=== PATIENT | male | born 1955 | race Caucasian/White ===

== ENCOUNTER → 2017-08-27 | Outpatient (CLI) | payer OTHER | END | disposition home or self-care (01) | LOC: PLD 07:35 → LAB SHORT 07:35 | DX: D04.5 Carcinoma in situ of skin of trunk (principal) | CPT/HCPCS: 88305 ==

== ENCOUNTER → 2017-11-05 | Outpatient (CLI) | payer OTHER ==
[2017-11-05 19:04] LABS: Anion Gap 12 mmol/L (6-16); Blood Urea Nitrogen 21 mg/dL (8-24); Bun/Creatinine Ratio 24.5 (12.0-20.0); CO2, Blood 25 mmol/L (21-32); Calcium, Blood 9.4 mg/dL (8.5-10.1); Chloride, Blood 98 mmol/L (98-108); Creatinine, Blood 0.86 mg/dL (0.60-1.20); Glomerular Filtration Rate >60 (60-); Glucose, Blood 300 mg/dL (70-99); Potassium, Blood 3.6 mmol/L (3.5-5.5); Sodium, Blood 135 mmol/L (136-145); Uric Acid, Blood 8.4 mg/dL (3.5-7.2)
== END ==
LOC: LAB SHORT 16:59 → LAB 16:59
PROVIDERS: Hospitalist
DX: M10.061 Idiopathic gout, right knee (principal); M10.062 Idiopathic gout, left knee
CPT/HCPCS: 80048; 84550

== ENCOUNTER → 2019-03-31 | Outpatient (CLI) | payer OTHER | END | disposition home or self-care (01) | LOC: PLD 08:32 → LAB SHORT 08:32 | DX: D04.5 Carcinoma in situ of skin of trunk (principal) | CPT/HCPCS: 88305 ==

== ENCOUNTER → 2019-04-16 | Outpatient (CLI) | payer OTHER ==
[2019-04-16 17:58] LABS: BASOPHILS ABSOLUTE AUTO 0.04 K/mm3 (0.00-0.23); BASOPHILS PERCENT AUTO 1 % (0-2); EOSINOPHILS ABSOLUTE AUTO 0.15 K/mm3 (0.00-0.68); EOSINOPHILS PERCENT AUTO 2 % (0-6); Hematocrit 39.5 % (37.0-53.0); Hemoglobin 13.7 g/dL (13.5-17.5); IMMATURE GRAN ABSOLUTE AUTO 0.05 K/mm3 (0.00-0.10); IMMATURE GRAN PERCENT AUTO 1 % (0-1); LYMPHOCYTES ABSOLUTE AUTO 1.85 K/mm3 (0.84-5.20); LYMPHOCYTES PERCENT AUTO 26 % (21-46); MONOCYTES ABSOLUTE AUTO 0.41 K/mm3 (0.16-1.47); MONOCYTES PERCENT AUTO 6 % (4-13); Mean Corpuscular HGB 29.8 pg (26.0-34.0); Mean Corpuscular HGB Conc 34.7 g/dL (31.5-36.5); Mean Corpuscular Volume 86 fL (80-100); Mean Platelet Volume 12.4 fL (9.1-12.4); NEUTROPHILS ABSOLUTE AUTO 4.54 K/mm3 (1.96-9.15); NEUTROPHILS PERCENT AUTO 65 % (41-73); Platelet Count 185 K/mm3 (150-400); RDW Coefficient Variation 14.6 % (11.7-14.2); RDW Standard Deviation 45.5 fL (35.1-46.3); White Blood Cell Count 7.04 K/mm3 (4.00-11.30)
[2019-04-16 18:13] LABS: Alanine Aminotransfer (ALT/SGP 32 U/L (12-78); Albumin, Blood 3.9 g/dL (3.4-5.0); Albumin/Globulin Ratio 1.3 (0.8-1.8); Alk Phos 74 U/L (50-136); Anion Gap 6 mmol/L (6-16); Aspartate Aminotrans (AST/SGOT 15 U/L (12-37); Bilirubin, Total 0.6 mg/dL (0.1-1.0); Blood Urea Nitrogen 14 mg/dL (8-24); Bun/Creatinine Ratio 18.7 (12.0-20.0); CHOL/HDL RATIO 5.9; CO2, Blood 27 mmol/L (21-32); Calcium, Blood 9.1 mg/dL (8.5-10.1); Chloride, Blood 107 mmol/L (98-108); Cholesterol 172 mg/dL (50-200); Creatinine, Blood 0.75 mg/dL (0.60-1.20); Glomerular Filtration Rate >60 (60-); Glucose, Blood 172 mg/dL (70-99); HDL Cholesterol 29 mg/dL (>39); LDL/HDL RATIO Unable to Calculate; Low Density Lipoprotein Chol Unable to Calculate mg/dL (0-110); Potassium, Blood 3.6 mmol/L (3.5-5.5); Sodium, Blood 140 mmol/L (136-145); Total Protein, Blood 6.9 g/dL (6.4-8.2); Triglycerides 606 mg/dL (30-160); Very Low Density Lipoprot Chol Unable to Calculate mg/dL (6-32)
== END | disposition home or self-care (01) ==
LOC: LAB SHORT 13:49 → LAB 13:49
PROVIDERS: Hospitalist
DX: E11.42 Type 2 diabetes mellitus with diabetic polyneuropathy (principal); E78.5 Hyperlipidemia, unspecified; I10 Essential (primary) hypertension
CPT/HCPCS: 80053; 80061; 82043; 83036; 85025

== ENCOUNTER → 2020-05-25 | Outpatient (CLI) | payer OTHER | END | disposition home or self-care (01) | LOC: LAB SHORT 07:47 → PLD 07:47 | DX: L57.0 Actinic keratosis (principal) | CPT/HCPCS: 88305 ==

== ENCOUNTER → 2021-05-08 | Outpatient (CLI) | payer OTHER ==
[2021-05-08 19:37] LABS: CHOL/HDL RATIO 6.1; Cholesterol 170 mg/dL (50-200); HDL Cholesterol 28 mg/dL (>39); Low Density Lipoprotein Chol 84 mg/dL (0-110); Triglycerides 290 mg/dL (30-160); Very Low Density Lipoprot Chol 58 mg/dL (6-32)
== END | disposition home or self-care (01) ==
LOC: LAB SHORT 13:40
PROVIDERS: Hospitalist
DX: E11.42 Type 2 diabetes mellitus with diabetic polyneuropathy (principal); E78.5 Hyperlipidemia, unspecified
CPT/HCPCS: 80061; 82043

== ENCOUNTER → 2022-01-11 | Outpatient (CLI) | payer OTHER | END | disposition home or self-care (01) | LOC: LAB SHORT 15:15 → LAB 15:15 | DX: R31.21 Asymptomatic microscopic hematuria (principal) | CPT/HCPCS: 87086 ==

== ENCOUNTER → 2022-02-20 | Outpatient (CLI) | payer OTHER | END | disposition home or self-care (01) | LOC: LAB SHORT 15:30 → LAB 15:30 | PROVIDERS: Hospitalist | DX: Z12.5 Encounter for screening for malignant neoplasm of prostate (principal) | CPT/HCPCS: G0103 ==

== ENCOUNTER → 2022-04-09 | Outpatient (CLI) | payer OTHER ==
[2022-04-09 19:09] LABS: CHOL/HDL RATIO 5.9; Cholesterol 171 mg/dL (50-200); HDL Cholesterol 29 mg/dL (>39); LDL/HDL RATIO 2.9; Low Density Lipoprotein Chol 84 mg/dL (0-110); Triglycerides 290 mg/dL (30-160); Very Low Density Lipoprot Chol 58 mg/dL (6-32)
== END | disposition home or self-care (01) ==
LOC: LAB SHORT 17:18 → LAB 17:18
PROVIDERS: Hospitalist
DX: E11.69 Type 2 diabetes mellitus with other specified complication (principal); E78.5 Hyperlipidemia, unspecified
CPT/HCPCS: 80061; 83036

== ENCOUNTER → 2022-06-27 | Outpatient (CLI) | payer OTHER | END | disposition home or self-care (01) | LOC: PLD 12:10 → LAB SHORT 12:10 | DX: C44.519 Basal cell carcinoma of skin of other part of trunk (principal); D04.5 Carcinoma in situ of skin of trunk; D04.61 Carcinoma in situ of skin of right upper limb, including shoulder | CPT/HCPCS: 88305 ==

== ENCOUNTER 2022-10-04 06:28 | Day surgery (SDC) | payer OTHER ==
[~2022-10-04] VITALS: Ht 177.8 cm; Wt 91.0 kg
[~2022-10-04 06:28] MED LIST: ALLO300 PO; ATOR10 PO; GEMF600 PO; GLIP5 PO; HYDR10 PO; INSULIN GL100 UNIT/3 SC; LISI20 PO; METF500 PO; SPIR50 PO
--- NOTE | 2022-10-04 19:15 | NUR ---
PCU ADMIT / END OF SHIFT PT A&O X4. VSS. SPO2 > 92% ON RA. MONITOR SHOWING PACED RHYTHM, HR 60s-80s. PT INDEPENDENT IN RM. LCW PACER INSERTION SITE WNL. PT REPORTING "SOME DISCOMFORT" BUT DENYING NEED FOR PRN PAIN MEDICATION. PT STATES "I'LL THINK ABOUT IT, MAYBE LATER." L ARM IN SLING & ICE PACK IN PLACE. REPORT GIVEN TO TRAUMA DOCTOR RN ASSUMING CARE OF PT.
--- NOTE | 2022-10-05 05:15 | NUR ---
SHIFT SUMMARY: Patient refused pain meds despite reporting mild pain at pacemaker incision site. Vitals stable but hypertensive at times. Given scheduled antihypertensives before bed which did lower BP somewhat. Paced rythm in the 60s. Patient reports that cannot get comfortable in the bed and has slept poorly, but declines interventions. Ambulating in room independently with arm in sling.
[2022-10-05] MEDS ORDERED: HYDCHL25 PO (08:37)
[2022-10-05] MEDS ORDERED: AMLO10 PO (14:54)
[2022-10-05] MEDS ORDERED: Carvedilol12.5 MG PO (14:55)
--- NOTE | 2022-10-05 15:30 | NUR ---
DISCHARGE HOME PT A&O X4. VSS. SPO2 > 92% ON RA. MONITOR SHOWING PACED RHYTHM, HR 60s-70s. LCW PACER SITE WNL. PT INDEPENDENT IN . DISCHARGE INSTRUCTIONS REVIEWED W/ PT & PT TAKEN OUT BY WHEELCHAIR W/ BELONGINGS @ APPROX 1530.
== END 2022-10-05 15:25 | disposition home or self-care (01) ==
LOC: MHTC 06:28 → PCU 09:54 → MHTC 10-05 15:25
DX: I49.5 Sick sinus syndrome (principal); I34.0 Nonrheumatic mitral (valve) insufficiency; I45.5 Other specified heart block; I42.1 Obstructive hypertrophic cardiomyopathy; R55 Syncope and collapse; I11.9 Hypertensive heart disease without heart failure; E11.9 Type 2 diabetes mellitus without complications; I42.2 Other hypertrophic cardiomyopathy
CPT/HCPCS: 71046; 82947; 93005; 93010; 93306; 99152; 99153; A9270; C1785; C1894; C1898; J0690; J1644; J1815; J2250; J3010; J7030; J7040; Q9967

== ENCOUNTER → 2022-12-17 | Outpatient (CLI) | payer OTHER ==
[~2022-12-17] MED LIST changes: +AMLO10 PO; +Carvedilol12.5 MG PO; +HYDCHL25 PO
== END ==
LOC: LAB 14:50 → LAB SHORT 14:50
DX: E11.69 Type 2 diabetes mellitus with other specified complication (principal)
CPT/HCPCS: 82043

== ENCOUNTER → 2023-07-24 | Outpatient (CLI) | payer OTHER | LOC: LAB 09:18 → LAB SHORT 09:18 | DX: D48.9 Neoplasm of uncertain behavior, unspecified (principal) | CPT/HCPCS: 88305 ==

== ENCOUNTER → 2024-07-15 | Outpatient (CLI) | payer OTHER ==
[2024-07-15 19:00] LABS: BASOPHILS ABSOLUTE AUTO 0.03 K/mm3 (0.00-0.23); BASOPHILS PERCENT AUTO 0 % (0-2); EOSINOPHILS ABSOLUTE AUTO 0.03 K/mm3 (0.00-0.68); EOSINOPHILS PERCENT AUTO 0 % (0-6); Hematocrit 33.4 % (37.0-53.0); Hemoglobin 11.8 g/dL (13.5-17.5); IMMATURE GRAN ABSOLUTE AUTO 0.18 K/mm3 (0.00-0.10); IMMATURE GRAN PERCENT AUTO 1 % (0-1); LYMPHOCYTES PERCENT AUTO 8 % (21-46); MONOCYTES ABSOLUTE AUTO 0.89 K/mm3 (0.16-1.47); MONOCYTES PERCENT AUTO 7 % (4-13); Mean Corpuscular HGB 30.9 pg (26.0-34.0); Mean Corpuscular HGB Conc 35.3 g/dL (31.5-36.5); Mean Corpuscular Volume 87 fL (80-100); Mean Platelet Volume 11.6 fL (9.1-12.4); NEUTROPHILS ABSOLUTE AUTO 10.92 K/mm3 (1.96-9.15); NEUTROPHILS PERCENT AUTO 84 % (41-73); Platelet Count 182 K/mm3 (150-400); RDW Coefficient Variation 14.3 % (11.7-14.2); RDW Standard Deviation 45.1 fL (35.1-46.3); Red Blood Cell Count 3.82 M/mm3 (4.30-5.90); White Blood Cell Count 13.05 K/mm3 (4.00-11.30)
[2024-07-15 20:02] LABS: Albumin, Blood 2.8 g/dL (3.4-5.0); Albumin/Globulin Ratio 0.8 (0.8-1.8); Calcium, Blood 9.4 mg/dL (8.5-10.1); Creatinine, Blood 1.04 mg/dL (0.60-1.20); Globulin, Blood 3.4 g/dL (2.2-4.0); Potassium, Blood 3.1 mmol/L (3.5-5.5); Thyroid Stimulating Hormone 1.58 uIU/mL (0.360-4.800); Total Protein, Blood 6.2 g/dL (6.4-8.2)
== END | disposition home or self-care (01) ==
LOC: LAB SHORT 17:25 → LAB 17:25
PROVIDERS: Hospitalist
DX: I13.0 Hypertensive heart and chronic kidney disease with heart failure and stage 1 through stage 4 chronic kidney disease, or unspecified chronic kidney disease (principal); N18.9 Chronic kidney disease, unspecified; I50.9 Heart failure, unspecified; R53.83 Other fatigue; R80.0 Isolated proteinuria
CPT/HCPCS: 80053; 83880; 84443; 85025; 87086

== ENCOUNTER 2024-08-22 10:23 | Inpatient (IN) | payer OTHER ==
[~2024-08-22] VITALS: Ht 177.8 cm; Wt 94.5 kg
[~2024-08-22 10:23] MED LIST changes: +Etomidate 2MG / ML 10ML Vial IV ONE; +Phenylephrine HCl 100 MCG/ML-NS 10MLSYR (1MG/10ML) IV ONE; +Rocuronium Bromide 10 MG/ML 5ML Injection IV ONE
[2024-08-22] MEDS ORDERED: Ondansetron HCl 2 MG / ML 2ML Vial IV ONE (11:25)
[2024-08-22] MEDS ORDERED: NS 1,000 ML IV SCH ×3 (11:25→22:10)
[2024-08-22] MEDS ORDERED: HYDROmorphone HCl/Pf 1MG SYR IV ONE ×2 (12:00→15:15)
[2024-08-22 12:18] LABS: BASOPHILS ABSOLUTE AUTO 0.05 K/mm3 (0.00-0.23); BASOPHILS PERCENT AUTO 0 % (0-2); Hematocrit 48.7 % (37.0-53.0); Hemoglobin 17.2 g/dL (13.5-17.5); LYMPHOCYTES ABSOLUTE AUTO 1.23 K/mm3 (0.84-5.20); LYMPHOCYTES PERCENT AUTO 7 % (21-46); MONOCYTES ABSOLUTE AUTO 0.74 K/mm3 (0.16-1.47); MONOCYTES PERCENT AUTO 4 % (4-13); Mean Corpuscular HGB 29.2 pg (26.0-34.0); Mean Corpuscular HGB Conc 35.3 g/dL (31.5-36.5); Mean Corpuscular Volume 83 fL (80-100); Platelet Count 254 K/mm3 (150-400); RDW Standard Deviation 46.7 fL (35.1-46.3); Red Blood Cell Count 5.89 M/mm3 (4.30-5.90)
[2024-08-22 12:21] LABS: EOSINOPHILS ABSOLUTE AUTO 0.05 K/mm3 (0.00-0.68); EOSINOPHILS PERCENT AUTO 0 % (0-6); IMMATURE GRAN ABSOLUTE AUTO 0.06 K/mm3 (0.00-0.10); IMMATURE GRAN PERCENT AUTO 0 % (0-1); NEUTROPHILS ABSOLUTE AUTO 16.47 K/mm3 (1.96-9.15); NEUTROPHILS PERCENT AUTO 89 % (41-73)
[2024-08-22 12:32] LABS: Albumin, Blood 3.4 g/dL (3.4-5.0); Albumin/Globulin Ratio 0.9 (0.8-1.8); Bilirubin, Total 4.7 mg/dL (0.1-1.0); Bun/Creatinine Ratio 14.9 (12.0-20.0); Calcium, Blood 9.9 mg/dL (8.5-10.1); Creatinine, Blood 1.61 mg/dL (0.60-1.20); Globulin, Blood 3.6 g/dL (2.2-4.0); Potassium, Blood 3.6 mmol/L (3.5-5.5)
[2024-08-22] MEDS ORDERED: Piperacillin/Tazobactam Sod 3.375 GM in NS 100 ML IV ONE (13:55)
[2024-08-22] MEDS ORDERED: Morphine Sulfate 4 MG/1 ML Injection IV ONE (14:10)
[2024-08-22] MEDS ORDERED: Lactated Ringer's 1,000 ML IV SCH ×3 (16:25→20:15)
[2024-08-22 18:40] LABS: Source, Urine Clean Catch
[2024-08-22] MEDS ORDERED: Prochlorperazine Edisylate 10 mg Vial IV PRN (18:45)
[2024-08-22] MEDS ORDERED: FLU VACC TS2024-25(6MOS UP)/PF 45 MCG/0.5 ML SYRINGE IM ONE (18:45)
[2024-08-22 18:47] LABS: Appearance, Urine Clear (Clear); Blood, Urine 1+ (Neg); Color, Urine Yellow (P-Yellow); Glucose Qualitative, Urine 1+ (Neg); Ketones, Urine Neg (Neg); Leukocyte Esterase, Urine 1+ (Neg); Nitrite, Urine Neg (Neg); Protein, Urine 3+ (Neg); Urobilinogen, Urine 1+ (Normal)
[2024-08-22 18:54] LABS: Bilirubin, Urine 1+ (Neg)
[2024-08-22] MEDS ORDERED: HYDROmorphone HCl/Pf 1MG SYR IV PRN ×2 (18:55→20:15)
[2024-08-22 18:56] LABS: Amorphous Light (0-Heavy); Bacteria Few /hpf; Hyaline Casts 0-2 /lpf (0-2); Squamous Epithelial Cells Rare /hpf (Few)
[2024-08-22] MEDS ORDERED: Enoxaparin 40 MG/0.4 ML SYR SC SCH (19:00)
[2024-08-22] MEDS ORDERED: Labetalol HCL 5 MG/ML 4ML Injection (Single Dose) IV PRN (19:00)
[2024-08-22 19:04] LABS: Albumin, Blood 2.6 g/dL (3.4-5.0); Albumin/Globulin Ratio 0.8 (0.8-1.8); Bilirubin, Total 4.9 mg/dL (0.1-1.0); Calcium, Blood 8.5 mg/dL (8.5-10.1); Creatinine, Blood 1.37 mg/dL (0.60-1.20); Globulin, Blood 3.3 g/dL (2.2-4.0); Potassium, Blood 4.5 mmol/L (3.5-5.5); Total Protein, Blood 5.9 g/dL (6.4-8.2)
[2024-08-22] MEDS ORDERED: Piperacillin/Tazobactam Sod 3.375 GM in NS 100 ML IV SCH (20:00)
[2024-08-22 20:03] LABS: International Normalized Ratio 1.16; Prothrombin Time Results 12.3 Sec (9.7-11.5)
[2024-08-22 20:05] LABS: CHOL/HDL RATIO 3.4; Cholesterol 82 mg/dL (50-200); HDL Cholesterol 24 mg/dL (>39); LDL/HDL RATIO 1.2; Low Density Lipoprotein Chol 29 mg/dL (0-110); Triglycerides 145 mg/dL (30-160); Very Low Density Lipoprot Chol 29 mg/dL (6-32)
[2024-08-22] MEDS ORDERED: Insulin Glargine-Yfgn 100 Unit/mL 3 ML SYR SC SCH (21:00)
[2024-08-23] VITALS (14 sets, daily range): BP systolic 95–115; BP diastolic 49–68
[2024-08-23] MEDS ORDERED: Insulin Human Lispro 100 Units/ML 3ML Syringe SC SCH ×2
[2024-08-23] MEDS ORDERED: Lactated Ringer's 1,000 ML IV ONE ×2 (00:28→13:50)
[2024-08-23] MEDS ORDERED: OLANZapine 10 MG Vial IM ONE (03:00)
[2024-08-23] MEDS ORDERED: Piperacillin/Tazobactam Sod 3.375 GM in NS 100 ML IV SCH (06:00)
[2024-08-23 06:50] LABS: Hematocrit 35.2 % (37.0-53.0); Hemoglobin 12.1 g/dL (13.5-17.5); Mean Corpuscular HGB 29.9 pg (26.0-34.0); Mean Corpuscular HGB Conc 34.4 g/dL (31.5-36.5); Mean Corpuscular Volume 87 fL (80-100); Mean Platelet Volume 11.1 fL (9.1-12.4); NRBC ABSOLUTE 0.02 K/mm3 (0.00-0.02); NRBC Auto 0.2 /100 WBC (0.0-0.2); Platelet Count 174 K/mm3 (150-400); RDW Coefficient Variation 16.2 % (11.7-14.2); RDW Standard Deviation 51.5 fL (35.1-46.3); Red Blood Cell Count 4.05 M/mm3 (4.30-5.90); White Blood Cell Count 8.85 K/mm3 (4.00-11.30)
[2024-08-23 07:10] LABS: Albumin, Blood 1.8 g/dL (3.4-5.0); Albumin/Globulin Ratio 0.7 (0.8-1.8); Bilirubin, Total 2.6 mg/dL (0.1-1.0); Bun/Creatinine Ratio 16.8 (12.0-20.0); Calcium, Blood 7.5 mg/dL (8.5-10.1); Creatinine, Blood 1.85 mg/dL (0.60-1.20); Globulin, Blood 2.6 g/dL (2.2-4.0); Magnesium, Blood 0.9 mg/dL (1.6-2.4); Phosphorus, Blood 3.2 mg/dL (2.5-4.9); Potassium, Blood 4.8 mmol/L (3.5-5.5); Total Protein, Blood 4.4 g/dL (6.4-8.2)
[2024-08-23 07:19] LABS: BAND PERCENT MAN 39 % (0-8); BASOPHILS PERCENT MAN 0 % (0-2); EOSINOPHILS PERCENT MAN 0 % (0-6); LYMPHOCYTES ABSOLUTE MAN 0.35 K/mm3 (0.84-5.20); LYMPHOCYTES PERCENT MAN 4 % (21-46); METAMYELOCYTE ABSOLUTE MAN 0.08 K/mm3 (0.00-0.00); METAMYELOCYTE PERCENT MAN 1 % (0-0); MONOCYTES ABSOLUTE MAN 0.44 K/mm3 (0.16-1.47); MONOCYTES PERCENT MAN 5 % (4-13); NEUTROPHILS ABSOLUTE MAN 7.96 K/mm3 (1.96-9.15); SEG NEUTROPHILS PERCENT MAN 51 % (41-73); TOTAL CELLS COUNTED 100
[2024-08-23] MEDS ORDERED: Magnesium Sulf 2 GM/Water 50ML 50 ML IV ONE ×2 (07:45→14:40)
[2024-08-23] MEDS ORDERED: Mag Sulfate 1 GM/D5% 100ML 100 ML IV SCH (07:55)
[2024-08-23] MEDS ORDERED: LORazepam 2 MG/ML 1ML Injection IV PRN ×2 (08:20→13:20)
[2024-08-23] MEDS ORDERED: HYDROmorphone HCl/Pf 1MG SYR IV PRN ×2 (08:20→13:20)
[2024-08-23] MEDS ORDERED: Meropenem 2,000 MG in NS 250 ML IV SCH (09:39)
--- NOTE | 2024-08-23 09:59 | NUR ---
REPORT RECEIVED: REPORT RECEIVED FROM DIANE BARAJAS RN. PATIENT WILL HAVE DRAIN PLACEMENT PRIOR TO ADMISSION TO ICU.
[2024-08-23] MEDS ORDERED: Midazolam HCL 50 MG in NS 40 ML IV PRN (10:40)
[2024-08-23] MEDS ORDERED: fentaNYL citrate 1,000 MCG in NS 80 ML IV SCH (10:45)
[2024-08-23] MEDS ORDERED: Vasopressin 20 UNITS in NS 100 ML IV SCH (10:50)
[2024-08-23] MEDS ORDERED: Midazolam HCl 1MG / ML 2ML Vial IV ONE (11:15)
[2024-08-23] MEDS ORDERED: NS 500 ML IV ONE ×2 (12:19→12:25)
[2024-08-23] MEDS ORDERED: FentaNYL Citrate 50 MCG/ML 2 ML Injection ONE (12:19)
[2024-08-23] MEDS ORDERED: FentaNYL Citrate 50 MCG/ML 2 ML Injection IV STA (12:21)
[2024-08-23 12:37] LABS: pH, Body Fluid 6.7
[2024-08-23 12:40] LABS: Automated BF WBC Count >200.000 K/mm3 (0-999)
[2024-08-23 12:41] LABS: Automated BF RBC Count 0.246 M/mm3 (0-0); RBC Count, Body Fluid 246000 /mm3 (0-0)
[2024-08-23 12:50] LABS: Appearance, Body Fluid Turbid (Clear); Color, Body Fluid Yellow (None-Yellow)
[2024-08-23] MEDS ORDERED: propofoL 100 ML IV SCH (13:00)
[2024-08-23 13:10] LABS: PCO2 Arterial 30.3 mmHg (35-45); PO2 Arterial 66.2 mmHg (80-100); pH Blood Arterial 7.34 (7.35-7.45)
[2024-08-23 13:12] LABS: Hematocrit 37.9 % (37.0-53.0); Mean Corpuscular HGB 29.1 pg (26.0-34.0); Mean Corpuscular HGB Conc 34.3 g/dL (31.5-36.5); Mean Corpuscular Volume 85 fL (80-100); Mean Platelet Volume 11.1 fL (9.1-12.4); NRBC ABSOLUTE 0.02 K/mm3 (0.00-0.02); NRBC Auto 0.2 /100 WBC (0.0-0.2); Platelet Count 256 K/mm3 (150-400); RDW Coefficient Variation 16.3 % (11.7-14.2); RDW Standard Deviation 49.9 fL (35.1-46.3); Red Blood Cell Count 4.47 M/mm3 (4.30-5.90)
[2024-08-23 13:30] LABS: Anti-Xa UFH, PHA Monitoring 0.28 IU/mL
[2024-08-23 13:32] LABS: Albumin/Globulin Ratio 0.7 (0.8-1.8); Bilirubin, Indirect 0.8 mg/dL (0.1-0.7); Bilirubin, Total 2.8 mg/dL (0.1-1.0); Bun/Creatinine Ratio 18.1 (12.0-20.0); Calcium, Blood 7.1 mg/dL (8.5-10.1); Creatinine, Blood 2.71 mg/dL (0.60-1.20); Globulin, Blood 2.8 g/dL (2.2-4.0); Magnesium, Blood 1.3 mg/dL (1.6-2.4); Potassium, Blood 4.9 mmol/L (3.5-5.5); Total Protein, Blood 4.8 g/dL (6.4-8.2)
[2024-08-23] MEDS ORDERED: Dose Adjust by Pharmacy XX STA (13:34)
[2024-08-23] MEDS ORDERED: Heparin Sodium,Porcine/0.5 NS 500 ML IV SCH (13:35)
[2024-08-23] MEDS ORDERED: Hydrocortisone Sod Succinate 100 MG Vial IV SCH (14:00)
[2024-08-23] MEDS ORDERED: Acetaminophen 650 MG Supp PR ONE (16:35)
[2024-08-23 16:58] LABS: Total Cell Count, Body Fluid 100
--- NOTE | 2024-08-23 18:25 | NUR ---
WASTE OF MIDAZOLAM: WASTED 30 ML OF MIDAZOLAM GTT WITH ARLENE HURT RN.
--- NOTE | 2024-08-23 18:27 | NUR ---
30ML OF VERSED WASTED WITH ISRRAEL BONDS RN
--- NOTE | 2024-08-23 19:06 | NUR ---
AFTERNOON AND TRANSFER TO [facility]: 1205:PATIENT ARRIVED TO UNIT INTUBATED AND SEDATED. RT HUMAIRA AND DR CH AT BEDSIDE. VENT SETTINGS AC/VC 16/500/9/80% SPO2 >90. RR IN THE 20S. DIMINISHED THROUGHOUT LUNGS. MAPS >65. BLOOD PRESSURES IN LOW 100S. LEVOPHED AT 30 MCG/MIN AND VASOPRESSIN AT 0.04 UNITS/MIN. FENTANYL AT 80 MCG/HOUR AND MIDAZOLAM AT 3.5 MG/HR. PATIENT RESPONDS TO PAINFUL STIMULI. NOT FOLLOWING DIRECTIONS AT THIS TIME. FOR THE REST OF THE AFTERNOON: AXILLARY ARTERIAL LINE PLACED BY DR. CH. HEPARIN STARTED PER PHARMACY AT 18 UNITS/KG/HR. ADDED EPINEPHRINE AND TITRATED DOWN THE LEVOPHED. MEASURED INTRA ABDOMINAL PRESSURE USING THE INDWELLING CATHETER PROTOCOLS. RECEIVED A READING OF 30-31. DR CH MADE AWARE. PATIENT CONTINUED TO PRODUCE MINIMAL AMOUNTS OF URINE. PATIENT ARRIVED WITH A TEMPERATURE OF 103.1. PLACED ICE PACKS AND A COOLING BLANKET. PATIENT RECEIVED A 1000ML BOLUS OF LR AND INCREASED MAINTENCE RATE OF LA TO 250 ML/HR. TITRATED PATIENT OFF OF THE MIDAZOLAM AND INITIATED PROPOFOL. TRANSFER TO [facility]: PATIENT RECEIVED A BED AT [facility]. TRANSFER TEAM ARRIVED AROUND 1630. PATIENT'S SISTER JOSE AWARE OF TRANSFER AND ROOM. AT THIS TIME, LEVOPHED WAS DOWN TO 20 MCG/KG/MIN AND EPINEPHRINE WAS UP TO 11 MCG/MIN. PROPOFOL AT 25 MCG/KG/MIN. FENTANYL AT 100 MCG/HOUR. HEPARIN CONTINUED AT 18 UNITS/KG/MIN. REPORT: REPORT CALL TO ADULT ICU AT [facility]. REPORT GIVEN TO CECILIA CALDERON. PROVIDED WITH OUR CALL BACK NUMBER.
[2024-08-23] MEDS ORDERED: Insulin Glargine-Yfgn 100 Unit/mL 3 ML SYR SC SCH (21:00)
[2024-08-24 15:40] LABS: Body Fluid WBC Count > 200000 /mm3 (0-999)
== END 2024-08-23 16:30 | disposition short-term general hospital (02) | DRG 871 ==
LOC: ER 10:23 → ERHOLD 10:24 → ER 14:58 → ICUE 08-23 12:00
PROVIDERS: Family Medicine; Internal Medicine Critical Care Medicine; Student in an Organized Health Care Education/Training Program; ADMIT Internal Medicine
PROC: 0BH17EZ Insertion of Endotracheal Airway into Trachea, Via Natural or Artificial Opening (ICD-10-PCS; principal; 2024-08-22)
PROC: 5A1935Z Respiratory Ventilation, Less than 24 Consecutive Hours (ICD-10-PCS; 2024-08-22)
PROC: 02HV33Z Insertion of Infusion Device into Superior Vena Cava, Percutaneous Approach (ICD-10-PCS; 2024-08-22)
PROC: 4A033R1 Measurement of Arterial Saturation, Peripheral, Percutaneous Approach (ICD-10-PCS; 2024-08-22)
PROC: 3E033XZ Introduction of Vasopressor into Peripheral Vein, Percutaneous Approach (ICD-10-PCS; 2024-08-22)
PROC: 3E03329 Introduction of Other Anti-infective into Peripheral Vein, Percutaneous Approach (ICD-10-PCS; 2024-08-22)
PROC: 0F9430Z Drainage of Gallbladder with Drainage Device, Percutaneous Approach (ICD-10-PCS; 2024-08-23)
PROC: 03HY32Z Insertion of Monitoring Device into Upper Artery, Percutaneous Approach (ICD-10-PCS; 2024-08-23)
PROC: 4A133B1 Monitoring of Arterial Pressure, Peripheral, Percutaneous Approach (ICD-10-PCS; 2024-08-23)
PROC: 4A133J1 Monitoring of Arterial Pulse, Peripheral, Percutaneous Approach (ICD-10-PCS; 2024-08-23)
DX: A41.9 Sepsis, unspecified organism (principal); I81 Portal vein thrombosis; K85.91 Acute pancreatitis with uninfected necrosis, unspecified; J96.01 Acute respiratory failure with hypoxia; R65.21 Severe sepsis with septic shock; K81.0 Acute cholecystitis; I42.1 Obstructive hypertrophic cardiomyopathy; E87.21 Acute metabolic acidosis; K83.09 Other cholangitis; I82.890 Acute embolism and thrombosis of other specified veins; N17.9 Acute kidney failure, unspecified; D68.59 Other primary thrombophilia; E78.5 Hyperlipidemia, unspecified; I49.5 Sick sinus syndrome; I11.9 Hypertensive heart disease without heart failure; R00.1 Bradycardia, unspecified; E11.22 Type 2 diabetes mellitus with diabetic chronic kidney disease; N18.9 Chronic kidney disease, unspecified; Z79.899 Other long term (current) drug therapy; Z79.811 Long term (current) use of aromatase inhibitors; Z79.84 Long term (current) use of oral hypoglycemic drugs; Z79.4 Long term (current) use of insulin; Z98.890 Other specified postprocedural states; Z95.0 Presence of cardiac pacemaker
CPT/HCPCS: 31500; 36415; 36556; 36620; 51701; 51798; 71045; 74177; 75989; 80048; 80053; 80061; 80076; 81001; 82803; 82947; 83605; 83615; 83690; 83735; 83986; 84100; 85025; 85027; 85520; 85610; 85730; 86140; 87040; 87070; 87075; 87077; 87086; 87186; 87205; 89051; 93005; 93010; 94002; 96374-59; 96375-59; 99285-25; A9270; C1751; J0171; J1171; J1644; J1650; J1720; J1815; J2060; J2185; J2250; J2270; J2371; J2405; J2543; J3010; J3475; J7030; J7040; J7050; J7060; J7120; Q9967

== ENCOUNTER 2024-10-22 07:09 | Day surgery (SDC) | payer OTHER ==
[~2024-10-22] VITALS: Ht 177.8 cm; Wt 76.7 kg
[~2024-10-22 07:09] MED LIST changes: -Etomidate 2MG / ML 10ML Vial IV ONE; +NS 500 ML IV ONE; -Phenylephrine HCl 100 MCG/ML-NS 10MLSYR (1MG/10ML) IV ONE; -Rocuronium Bromide 10 MG/ML 5ML Injection IV ONE
[2024-10-22] MEDS ORDERED: CeFAZolin Sodium 2,000 MG VIAL ONE (07:28)
[2024-10-22] MEDS ORDERED: ELIQUIS5 M6 PO (07:43)
[2024-10-22] MEDS ORDERED: INSULANPEN SC (07:46)
[2024-10-22] MEDS ORDERED: NS 500 ML IV ONE (08:04)
[2024-10-22] MEDS ORDERED: FentaNYL Citrate 50 MCG/ML 2 ML Injection ONE (08:28)
[2024-10-22] MEDS ORDERED: propofoL 20 ML IV ONE (08:28)
[2024-10-22 09:00] VITALS: BP 111/71
--- NOTE | 2024-10-22 09:06 | NUR ---
10/22/24 0906 JOSE JUAN BUCKLEY UP IN CHAIR, NO COMPLAINTS. TOLERATING FLUIDS. ALERT, RA
== END 2024-10-22 09:26 | disposition home or self-care (01) ==
LOC: ORSCSDS 07:09
PROVIDERS: Orthopaedic Surgery
PROC: 01N54ZZ Release Median Nerve, Percutaneous Endoscopic Approach (ICD-10-PCS; principal; 2024-10-22 08:30)
DX: G56.02 Carpal tunnel syndrome, left upper limb (principal); E78.5 Hyperlipidemia, unspecified; E11.9 Type 2 diabetes mellitus without complications; I10 Essential (primary) hypertension; Z95.0 Presence of cardiac pacemaker; Z79.4 Long term (current) use of insulin; Z79.01 Long term (current) use of anticoagulants; Z79.84 Long term (current) use of oral hypoglycemic drugs; Z79.899 Other long term (current) drug therapy
CPT/HCPCS: 82947; J0690; J2704; J3010; J7040

== ENCOUNTER → 2024-12-17 | Outpatient (CLI) | payer OTHER ==
[~2024-12-17] MED LIST changes: +ELIQUIS5 M6 PO; +INSULANPEN SC; -NS 500 ML IV ONE
[2024-12-17 20:44] LABS: Bun/Creatinine Ratio 20.8 (12.0-20.0); Calcium, Blood 9.7 mg/dL (8.5-10.1); Creatinine, Blood 0.91 mg/dL (0.60-1.20); Potassium, Blood 3.8 mmol/L (3.5-5.5)
== END ==
LOC: LAB SHORT 17:58 → LAB 17:58
PROVIDERS: Hospitalist
DX: I13.0 Hypertensive heart and chronic kidney disease with heart failure and stage 1 through stage 4 chronic kidney disease, or unspecified chronic kidney disease (principal)
CPT/HCPCS: 80048